=== PATIENT | male | born 1945 | race African-American/Black ===

== ENCOUNTER → 2020-03-12 13:40 | Outpatient (BNVA) | payer OTHER, SELFPAY | PROVIDERS: Visit Provider Urology | DX: Z76.89 Persons encountering health services in other specified circumstances (principal) ==

== ENCOUNTER → 2020-04-03 10:02 | Outpatient (BNVA) | payer OTHER, SELFPAY | PROVIDERS: Visit Provider Urology | DX: R39.15 Urgency of urination (principal); R35.1 Nocturia; N52.01 Erectile dysfunction due to arterial insufficiency | CPT/HCPCS: 54235; 99212 ==

== ENCOUNTER → 2020-12-16 15:18 | Outpatient (BNVA) | payer OTHER, SELFPAY | PROVIDERS: Visit Provider Urology | DX: N40.1 Benign prostatic hyperplasia with lower urinary tract symptoms (principal); N13.8 Other obstructive and reflux uropathy; R35.1 Nocturia; N52.01 Erectile dysfunction due to arterial insufficiency | CPT/HCPCS: 51798; 99212 ==

== ENCOUNTER 2021-06-08 10:23 | Outpatient (REF) | payer OTHER, SELFPAY ==
[2021-06-08 12:11] LABS: PSA,Total (Free>4and<10) 1.91 ng/mL (0.00-4.00)
== END 2021-06-08 10:24 | disposition home or self-care (01) ==
LOC: HO.LAB 10:23
PROVIDERS: PCP Internal Medicine; Visit Provider Urology
DX: Z12.5 Encounter for screening for malignant neoplasm of prostate (principal); N40.1 Benign prostatic hyperplasia with lower urinary tract symptoms; N13.8 Other obstructive and reflux uropathy
CPT/HCPCS: 36415; 84153

== ENCOUNTER → 2021-06-15 15:23 | Outpatient (BNVA) | payer OTHER, SELFPAY | PROVIDERS: PCP Internal Medicine; Visit Provider Urology | DX: N40.1 Benign prostatic hyperplasia with lower urinary tract symptoms (principal); N13.8 Other obstructive and reflux uropathy; R35.1 Nocturia; R39.15 Urgency of urination; N52.01 Erectile dysfunction due to arterial insufficiency; Z79.899 Other long term (current) drug therapy | CPT/HCPCS: 51798; 99212 ==

== ENCOUNTER → 2021-12-16 08:49 | Outpatient (BNVA) | payer OTHER, SELFPAY | PROVIDERS: PCP Internal Medicine; Visit Provider Urology | DX: N52.9 Male erectile dysfunction, unspecified (principal); R35.1 Nocturia; R33.9 Retention of urine, unspecified; R39.198 Other difficulties with micturition; R39.12 Poor urinary stream | CPT/HCPCS: 51798; 99212 ==

== ENCOUNTER 2022-06-20 10:57 | Outpatient (REF) | payer OTHER, SELFPAY ==
[2022-06-20 12:28] LABS: Prostate Specific Antigen 2.02 ng/mL (<0.05-4.0)
== END 2022-06-20 10:58 | disposition home or self-care (01) ==
LOC: HO.LAB 10:57
PROVIDERS: PCP Internal Medicine; Visit Provider Urology
DX: Z12.5 Encounter for screening for malignant neoplasm of prostate (principal); N13.8 Other obstructive and reflux uropathy; N40.1 Benign prostatic hyperplasia with lower urinary tract symptoms
CPT/HCPCS: 36415; 84153

== ENCOUNTER → 2022-06-24 11:38 | Outpatient (BNVA) | payer OTHER, SELFPAY | PROVIDERS: PCP Internal Medicine; Visit Provider Urology | DX: N40.1 Benign prostatic hyperplasia with lower urinary tract symptoms (principal); N13.8 Other obstructive and reflux uropathy; R39.15 Urgency of urination; E10.43 Type 1 diabetes mellitus with diabetic autonomic (poly)neuropathy; N52.01 Erectile dysfunction due to arterial insufficiency; N18.9 Chronic kidney disease, unspecified; Z79.82 Long term (current) use of aspirin; Z79.899 Other long term (current) drug therapy | CPT/HCPCS: 99212 ==

== ENCOUNTER 2022-12-27 08:11 | Outpatient (AMB) | payer OTHER, SELFPAY ==
--- NOTE | 2022-12-27 08:12 | A.OFFVIS_ITS ---
Intake Intake Visit Reasons: 6m/PVR Intake Note: Patient is present today via phone for a follow-up on BPH/PVR Results: 06/20/22- PSA: 2.02 Urology Med: Finasteride & Mirabegron Antibiotic Allergy: None Blood Thinner: Aspirin Tent Finisher Required: No Accompanied by: Self / Same As Patient Allergies No Known Allergies Allergy (Verified 12/27/22 08:13) Medication List - Last Reconciled 12/27/22 by Ej Nunez MD allopurinol 100 mg PO DAILY amlodipine 10 mg PO DAILY amlodipine 5 mg PO DAILY aspirin mg PO budesonide-formoterol 160-4.5 mcg/actuation (Symbicort) inhalation cetirizine 10 mg PO DAILY docusate sodium mg PO eplerenone mg PO finasteride 5 mg PO DAILY 90 days fluticasone propionate 50 mcg/actuation sprays intranasal furosemide 20 mg PO DAILY insulin aspart U-100 units subcut insulin glargine (Lantus Solostar U-100 Insulin) units subcut lidocaine 5% 1 patch topical DAILY losartan 100 mg PO DAILY metoprolol succinate ER 50 mg PO DAILY mirabegron ER 25 mg PO DAILY 90 days simvastatin mg PO HPI HPI Comments History of Present Illness Details Vasiliy is a very pleasant male. He is a patient of Dr. Christiansen. He is seen for the following urologic conditions - lower urinary tract symptoms - erectile dysfunction Telemedicine Evaluation 15 min Consultation [employer] Video attempted On combination medication for bladder emptying and storage - finasteride and Myrbetriq 25 mg Does state going every 2-3 hours during the day and night Discussed diabetic cystopathy Could add anticholinergic He would prefer not to be on additional medication Trial higher dose Myrbetriq 50 mg Prescription provided 2 month follow-up PVR office Lower Urinary Tract Symptoms: Primarily storage symptoms Doing well with current medications using finasteride and Myrbetriq Bladder stable - does have some urgency Current visit is for further evaluation of, lower urinary tract symptoms, predominate imitative symptoms. Current treatment includes medication - finasteride - prior medications include Myrbetriq Prostate Symptom Score Moderate (9-19), Bother 3. Symptoms include 11/27 incomplete emptying, intermittency, weak stream, nocturia (>2), and are progressing - wakes every 2 hours to urinate 07/28 , incomplete emptying, weak stream, nocturia (>2), and are stable. Results from testing include Cystoscopy no abnormality seen 12/27 Prior Prostate Score unknown. PSA 01/28 3.3 01/29 [place] 2.5, 04/03 1.9, 06/01 1.9, 06/02 2.0 Prostate volume 30-50gm. Associated conditions CAD No CVA No diabetes Yes elevated PSA No erectile dysfunction Yes Testing at next visit will include bladder scan, PVR - Diabetic cystopathy Erectile dysfunction:?? Decided not to go ahead with edex No longer an issue for him ?? He presents today for for continued evaluation and management of erectile dysfunction.?Procedure(s)/Diagnosis causing dysfunction include diabetes.?Current treatment includes Has been using PGE 1 pellet., trouble with supply so was prescribed injectable alprostadil ?Treatment side effects include none. ?At this time he experiences erections are partial and adequate for vaginal penetration.?Nocturnal erections do not occur.?Currently they are has a partner who is interested in treatment.?Associated problems? hypertension? Yes ? diabetes? Yes ? dyslipidemia? Yes ? depression? No ? stress? No ? decreased libido? No ? pelvic surgery? No ?Overall he is? 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 Erectile dysfunction due to arterial insufficiency Enlarged prostate Nocturia Weak urinary stream Review of Systems Const All systems reviewed & are unremarkable except as noted in HPI and below Reports no additional complaints Resp Reports no additional complaints GI Reports no additional complaints Reports as per HPI Musc Reports no additional complaints Physical Exam Telemedicine evaluation Appropriate responses Regular breathing rate and rhythm HEENT Head: Yes normal to inspection Ears: hearing grossly normal bilaterally Eyes General: appearance normal, both eyes and all related structures Neck Neck: Yes normal visual inspection Chest Chest palpation & inspection: normal inspection of the chest Resp Effort & Inspection: normal respiratory effort and able to speak in complete sentences Assessment & Plan Assessment & Plan (1) Urinary urgency: Code(s): R39.15 - Urgency of urination (2) Nocturia more than twice per night: Code(s): R35.1 - Nocturia Plan Trial high-dose Myrbetriq Medications: Changed From mirabegron ER 25 mg PO DAILY 90 days 90 tabs 1RF R39.15 - Urgency of urination To mirabegron ER 50 mg PO DAILY 30 days 30 tabs 1RF R39.15 - Urgency of urination Patient Instructions: Imaging studies, laboratory and physical exam results were discussed and reviewed in detail. No major barriers to patient understanding were identified. An opportunity to ask questions regarding the treatment plan was provided. All questions were answered. The patient expressed understanding and agreement with the above treatment plan. The patient is aware they should contact our office by phone for worsening of their current condition or the appearance of new urologic symptoms. Compliance is encouraged with any medications and followup testing that is ordered. It is a privilege to participate in the urologic care of your patient. If you have any questions or concerns regarding treatment for the above conditions, or other urologic issues, please do not hesitate to contact me. The office telephone contact is [phone]. This note is constructed using voice recognition software. While every effort has been made to ensure accuracy box truck driver errors may have been included. Yours sincerely, Dr Ej Nunez MD, [facility] - Urology Providers of Expert, Compassionate Care for the Genitourinary System Telehealth Telehealth Location of provider rendering services: practice address Location of patient: address on file Patient Identification confirmed using: Name, : Yes Telehealth method: video Patient verbally consented to treatment: Yes Patient verbally consented to billing insurance company: Yes Patient informed of any privacy concerns related to visit: Yes Coding Level of Care Code Tele Est Pt Level 4 (53925) Diagnoses Urinary urgency R39.15 Nocturia more than twice per night R35.1
== END 2022-12-27 09:16 | disposition home or self-care (01) ==
LOC: HO.HUSH 08:12
PROVIDERS: PCP Internal Medicine; Visit Provider Urology
DX: R39.15 Urgency of urination (principal); R35.1 Nocturia
CPT/HCPCS: 99214

== ENCOUNTER → 2022-12-27 08:11 | Outpatient (BNVA) | payer OTHER, SELFPAY | PROVIDERS: PCP Internal Medicine; Visit Provider Urology ==

== ENCOUNTER 2023-03-21 13:13 | Outpatient (AMB) | payer OTHER, SELFPAY ==
--- NOTE | 2023-03-21 13:22 | MHC.OFFVIS ---
Intake Intake Visit Reasons: 2m/PVR Intake Note: Patient is Present for Follow Up PVR Urology Medication: Finasteride, Myrbetriq Antibiotic Allergies: none Blood Thinners: Aspirin PVR: 38 ml Patient was previously on Myrbetriq 25mg he is now taking 50 mg patient states that there has been improvement with Myrbetriq 50mg Allergies No Known Allergies Allergy (Verified 03/21/23 13:24) HPI HPI Comments History of Present Illness Details Vasiliy is a very pleasant male. He is a patient of Dr. Christiansen. 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 Current treatment includes medication - finasteride - prior medications include Myrbetriq Prostate Symptom Score Moderate (9-19), Bother 3. Symptoms include 11/27 incomplete emptying, intermittency, weak stream, nocturia (>2), and are progressing - wakes every 2 hours to urinate 07/28 , incomplete emptying, weak stream, nocturia (>2), and are stable. Results from testing include Cystoscopy no abnormality seen 12/27 Prior Prostate Score unknown. PSA 01/28 3.3 01/29 [place] 2.5, 04/03 1.9, 06/01 1.9, 06/02 2.0 Prostate volume 30-50gm. Associated conditions CAD No CVA No diabetes Yes elevated PSA No erectile dysfunction Yes Testing at next visit will include bladder scan, PVR - Diabetic cystopathy Erectile dysfunction:?? Decided not to go ahead with edex No longer an issue for him ?? He presents today for for continued evaluation and management of erectile dysfunction.?Procedure(s)/Diagnosis causing dysfunction include diabetes.?Current treatment includes Has been using PGE 1 pellet., trouble with supply so was prescribed injectable alprostadil ?Treatment side effects include none. ?At this time he experiences erections are partial and adequate for vaginal penetration.?Nocturnal erections do not occur.?Currently they are has a partner who is interested in treatment.?Associated problems? hypertension? Yes ? diabetes? Yes ? dyslipidemia? Yes ? depression? No ? stress? No ? decreased libido? No ? pelvic surgery? No ?Overall he is? 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 Erectile dysfunction due to arterial insufficiency Enlarged prostate Nocturia Weak urinary stream Review of Systems Const Denies chills and Denies fever(s) Card Reports no additional complaints and Denies syncope Resp Denies cough GI Denies abdominal pain and Denies heartburn Reports as per HPI and Denies change in libido Neuro Denies syncope Psych Denies change in libido Endo Denies change in libido Physical Exam Const General: cooperative, healthy appearing, comfortable and no acute distress Orientation/consciousness: patient oriented x3 HEENT Face and sinus: Yes normal facial exam Mouth: moist mucous membranes Neck Neck: Yes normal visual inspection, Yes full ROM and Yes trachea midline Chest Chest palpation & inspection: normal inspection of the chest Resp Effort & Inspection: normal respiratory effort, able to speak in complete sentences and no respiratory distress GI Inspection: Yes normal to inspection Back/Spine/Pelvis Cervical Spine: normal cervical lordosis Thoracic/Lumbar Spine: thoracic and lumbar spine normal to inspection Skin General skin exam: no rashes or lesions noted Neuro General: patient oriented x3, gait normal, tone normal and moves all extremities Extrem General: Yes normal to inspection and Yes capillary refill normal Office Procedures Post Void Residual Post Residual Void Post Void Residual (PVR): [id number] Void Residual by ultrasound Assessment & Plan Assessment & Plan (1) Erectile dysfunction due to arterial insufficiency: Code(s): N52.01 - Erectile dysfunction due to arterial insufficiency (2) Urinary urgency: Code(s): R39.15 - Urgency of urination (3) Nocturia more than twice per night: Code(s): R35.1 - Nocturia Plan Six month follow-up Orders: Orders AMB Post Void Residual by ultrasound Today N13.8 - Other obstructive and reflux uropathy, N40.1 - Benign prostatic hyperplasia with lower urinary tract symptoms Medications: Changed From mirabegron ER 50 mg PO DAILY 30 days 30 tabs 1RF R39.15 - Urgency of urination To mirabegron ER 50 mg PO DAILY 90 tabs 1RF 90 days R39.15 - Urgency of urination Refilled finasteride 5 mg PO DAILY 90 tabs 1RF 90 days R39.15 - Urgency of urination Patient Instructions: Imaging studies, laboratory and physical exam results were discussed and reviewed in detail. No major barriers to patient understanding were identified. An opportunity to ask questions regarding the treatment plan was provided. All questions were answered. The patient expressed understanding and agreement with the above treatment plan. The patient is aware they should contact our office by phone for worsening of their current condition or the appearance of new urologic symptoms. Compliance is encouraged with any medications and followup testing that is ordered. It is a privilege to participate in the urologic care of your patient. If you have any questions or concerns regarding treatment for the above conditions, or other urologic issues, please do not hesitate to contact me. The office telephone contact is [phone]. This note is constructed using voice recognition software. While every effort has been made to ensure accuracy pipe fitter helper errors may have been included. Yours sincerely, Dr Ej Nunez MD, [facility] - Urology Providers of Expert, Compassionate Care for the Genitourinary System Coding Level of Care Code Est Pt Level 3 (61838) Diagnoses Erectile dysfunction due to arterial insufficiency N52.01 Urinary urgency R39.15 Nocturia more than twice per night R35.1 CPT Codes Post Residual Void - PVR CPT Code: 69175-[id number] Void Residual by ultrasound ([id number])
== END 2023-03-21 14:00 | disposition home or self-care (01) ==
PROVIDERS: PCP Internal Medicine; Referring Provider Internal Medicine; Visit Provider Urology
DX: N52.01 Erectile dysfunction due to arterial insufficiency (principal); R39.15 Urgency of urination; R35.1 Nocturia
CPT/HCPCS: 99213

== ENCOUNTER → 2023-03-21 13:13 | Outpatient (BNVA) | payer OTHER, SELFPAY | PROVIDERS: PCP Internal Medicine; Visit Provider Urology | DX: N52.01 Erectile dysfunction due to arterial insufficiency (principal); R39.15 Urgency of urination; R35.1 Nocturia | CPT/HCPCS: 51798 ==

== ENCOUNTER 2023-09-13 09:42 | Outpatient (AMB) | payer OTHER, SELFPAY ==
--- NOTE | 2023-09-13 09:43 | A.OFFVIS_ITS ---
Intake Visit Reasons: 6m follow up Intake Note: Patient is Present for Telephone Follow Up Urology Med: Myrbetriq, Finasteride Antibiotic Allergy:None Blood Thinner: Aspirin Card Lacer Required: No Allergies No Known Allergies Allergy (Verified 09/13/23 09:43) Medication List - Last Reconciled 09/13/23 by Ej Nunez MD allopurinol 100 mg PO DAILY alprostadil 40 mcg intra-cavernosal 3XW PRN 30 days amlodipine 10 mg PO DAILY amlodipine 5 mg PO DAILY aspirin mg PO budesonide-formoterol 160-4.5 mcg/actuation (Symbicort) inhalation cetirizine 10 mg PO DAILY docusate sodium mg PO eplerenone mg PO finasteride 5 mg PO DAILY 90 days fluticasone propionate 50 mcg/actuation sprays intranasal furosemide 20 mg PO DAILY insulin aspart U-100 units subcut insulin glargine (Lantus Solostar U-100 Insulin) units subcut lidocaine 5% 1 patch topical DAILY losartan 100 mg PO DAILY metoprolol succinate ER 50 mg PO DAILY mirabegron ER 50 mg PO DAILY 90 days simvastatin mg PO HPI Comments Details: Vasiliy is a very pleasant male. He is a patient of Dr. Christiansen. He is seen for the following urologic conditions - lower urinary tract symptoms - erectile dysfunction Telemedicine Evaluation 15 min Consultation [employer] Hillary Video 6 month f/u for combination bladder managment On combination medication for bladder emptying and storage - finasteride and Myrbetriq 50 mg Continuing to do very well Did ask whether MUSE still available. It appears to been withdrawn from the market. 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 Current treatment includes medication - finasteride - prior medications include Myrbetriq Prostate Symptom Score Moderate (9-19), Bother 3. Symptoms include 11/27 incomplete emptying, intermittency, weak stream, nocturia (>2), and are progressing - wakes every 2 hours to urinate 07/28 , incomplete emptying, weak stream, nocturia (>2), and are stable. Results from testing include Cystoscopy no abnormality seen 12/27 Prior Prostate Score unknown. PSA 01/28 3.3 01/29 [place] 2.5, 04/03 1.9, 06/01 1.9, 06/02 2.0 Prostate volume 30-50gm. Associated conditions CAD No CVA No diabetes Yes elevated PSA No erectile dysfunction Yes Testing at next visit will include bladder scan, PVR - Diabetic cystopathy Erectile dysfunction:?? Decided not to go ahead with edex No longer an issue for him ?? He presents today for for continued evaluation and management of erectile dysfunction.?Procedure(s)/Diagnosis causing dysfunction include diabetes.?Current treatment includes Has been using PGE 1 pellet., trouble with supply so was prescribed injectable alprostadil ?Treatment side effects include none. ?At this time he experiences erections are partial and adequate for vaginal penetration.?Nocturnal erections do not occur.?Currently they are has a partner who is interested in treatment.?Associated problems? hypertension? Yes ? diabetes? Yes ? dyslipidemia? Yes ? depression? No ? stress? No ? decreased libido? No ? pelvic surgery? No ?Overall he is? 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 Erectile dysfunction due to arterial insufficiency Enlarged prostate Nocturia Weak urinary stream Review of Systems Const All systems reviewed & are unremarkable except as noted in HPI and below Reports no additional complaints Resp Reports no additional complaints GI Reports no additional complaints Reports as per HPI Musc Reports no additional complaints Physical Exam Telemedicine evaluation Appropriate responses Regular breathing rate and rhythm HEENT Head: Yes normal to inspection Ears: hearing grossly normal bilaterally Eyes General: appearance normal, both eyes and all related structures Neck Neck: Yes normal visual inspection Chest Chest palpation & inspection: normal inspection of the chest Resp Effort & Inspection: normal respiratory effort and able to speak in complete sentences Telehealth Telehealth Location of provider rendering services: practice address Location of patient: address on file Patient Identification confirmed using: Name, : Yes Telehealth method: video Patient verbally consented to treatment: Yes Patient verbally consented to billing insurance company: Yes Patient informed of any privacy concerns related to visit: Yes Assessment & Plan Assessment & Plan (1) Urinary urgency: Code(s): R39.15 - Urgency of urination Category: Medical (2) BPH w urinary obs/LUTS: Code(s): N40.1 - Benign prostatic hyperplasia with lower urinary tract symptoms; N13.8 - Other obstructive and reflux uropathy Category: Medical (3) Erectile dysfunction due to arterial insufficiency: Code(s): N52.01 - Erectile dysfunction due to arterial insufficiency Category: Medical Plan Six-month follow-up office PSA Orders: Orders Prostate Specific Antigen 6 Months N13.8 - Other obstructive and reflux uropa thy, N40.1 - Benign prostatic hyperplasia with lower urinary tract symptoms Medications: New alprostadil 40 mcg intra-cavernosal 3XW PRN 2 ea 4RF erectile dysfunction 30 days N52.01 - Erectile dysfunction due to arterial insufficiency Refilled finasteride 5 mg PO DAILY 90 tabs 1RF 90 days R39.15 - Urgency of urination mirabegron ER 50 mg PO DAILY 90 tabs 1RF 90 days R39.15 - Urgency of urination Patient Instructions: Imaging studies, laboratory and physical exam results were discussed and reviewed in detail. No major barriers to patient understanding were identified. An opportunity to ask questions regarding the treatment plan was provided. All questions were answered. The patient expressed understanding and agreement with the above treatment plan. The patient is aware they should contact our office by phone for worsening of their current condition or the appearance of new urologic symptoms. Compliance is encouraged with any medications and followup testing that is ordered. It is a privilege to participate in the urologic care of your patient. If you have any questions or concerns regarding treatment for the above conditions, or other urologic issues, please do not hesitate to contact me. The office telephone contact is [phone]. This note is constructed using voice recognition software. While every effort has been made to ensure accuracy family dentist errors may have been included. Yours sincerely, Dr Ej Nunez MD, [facility] - Urology Providers of Expert, Compassionate Care for the Genitourinary System Coding Level of Care Code Tele Est Pt Level 4 (11921) Diagnoses Urinary urgency R39.15 BPH w urinary obs/LUTS N40.1; N13.8 Erectile dysfunction due to arterial insufficiency N52.01
== END 2023-09-13 10:34 | disposition home or self-care (01) ==
LOC: HO.HUSH 09:42
PROVIDERS: PCP Internal Medicine; Visit Provider Urology
DX: N40.1 Benign prostatic hyperplasia with lower urinary tract symptoms (principal); N13.8 Other obstructive and reflux uropathy; R39.15 Urgency of urination; E11.40 Type 2 diabetes mellitus with diabetic neuropathy, unspecified; N52.01 Erectile dysfunction due to arterial insufficiency
CPT/HCPCS: 99214

== ENCOUNTER → 2023-09-13 09:42 | Outpatient (BNVA) | payer OTHER, SELFPAY | PROVIDERS: PCP Internal Medicine; Visit Provider Urology ==

== ENCOUNTER 2024-09-16 12:05 | Outpatient (REF) | payer OTHER, SELFPAY ==
--- OUTSIDE RECORDS SUMMARY | 2024-09-16 12:54 | XMS_ITS | Encounter Summary ---
Author Organization [facility] Address [address] [address] Phone Care Team Providers Care Job Spotter Name Role Phone Bisi Christiansen MD Primary Care Provider [phone] Encounter Details Date Type Department Care Team (Late Contact Info) Description 08/29/2024 Office Communication [facility] [address] [id number] Judi Lucas ARNP [address] [address] Social History Tobacco Use Types Packs/Day Years Used Date Smoking Tobacco: Never Smokeless Tobacco: Never Alcohol Use Standard Drinks/Week Comments Never 0 (1 standard drink = 0.6 oz pur e alcohol) Sex and Gender Information Value Date Recorded Sex Assigned at Not on file Legal Sex Male 4:57 PM EST Gender Identity Not on file Sexual Orientation Not on file documented as of this encounter Plan of Treatment Upcoming Encounters Date Type Department Care Team (Late st Contact Info) Description 12/17/2024 10:15 AM EDT Office Visit [facility] [address] [id number] Maunel Lawson MD [address] [id number] documented as of this encounter Visit Diagnoses Not on filedocumented in this encounter Care Teams Job Spotter Relationship Specialty Start Date End Date Bisi Christiansen MD PCP - General Internal Medicine 06/29/22 documented as of this encounter
--- OUTSIDE RECORDS SUMMARY | 2024-09-16 12:54 | XMS_ITS | Clinical Summary ---
Author Organization [facility] Address [address] [place] [address] Care Team Providers Care Record Tabulating Clerk Name Role Phone Bisi Christiansen MD Primary Care Provider [phone] Allergies Active Allergy Reactions Criticality Noted Date Comments Seasonal 10/07/2022 Medications Medication Sig Dispensed Refills Start Date End Date Status famotidine (PEPCID) 10 MG tablet Take 1 tablet (10 mg total) by mouth 2 (two) times a day. 0 Active cetirizine (ZyrTEC) 10 MG tablet Take 1 tablet (10 mg total) by mouth daily. 0 Active empagliflozin (JARDIANCE) tablet 10 mg Take 1 tablet (10 mg total) by mouth daily. 0 Active FERROUS SULFATE PO Take by mouth. 0 Ac tive amLODIPine (NORVASC) tablet 10 mg Take 1 tablet (10 mg total) by mouth daily. 0 Active aspirin EC 81 MG tablet Take 1 tablet (81 mg total) by mouth daily. 0 Active eplerenone (INSPRA) tablet 50 mg Take 1 tablet (50 mg total) by mouth daily. 0 Active losartan (COZAAR) 100 MG tablet Take 1 tablet (100 mg total) by mouth daily. 0 Active budesonide-formotero l (Symbicort) 160-4.5 MCG/ACT inhaler Inhale 2 inhalations into the lungs 2 (two) times a day. 0 Active allopurinol (ZYLOPRIM) 100 MG tablet Take 1 tablet (100 mg total) by mouth daily. 0 Active insulin aspart (NovoLOG FLEXPEN) injection 100 units/mL Inject 100 Units under the skin 3 (three) times a day. 0 Active albuterol (ProAir HFA) 108 (90 Base) MCG/ACT inhaler Inhale 2 puffs into the lungs every 6 (six) hours as needed for wheezing. 0 Active Mirabegron ER (MYRBETRIQ) 25 MG TB24 24 hr tablet Take by mouth. 0 Act sherice insulin glargine (LANTUS) injection 100 units/mL Inject 22 Units under the skin every night at bedtime. 0 Active simvastatin (ZOCOR) 80 MG tablet Take 0.5 tablets (40 mg total) by mouth every night at bedtime. 0 Active hydrOXYzine (ATARAX) 25 MG tablet Take 1 tablet (25 mg total) by mouth. 0 Active Active Problems No known active problems Social History Tobacco Use Types Packs/Day Years Used Date Smoking Tobacco: Never Smokeless Tobacco: Never Tobacco Cessation:Counseling Given: Not Answered Alcohol Use Standard Drinks/Week Comments Not Currently 0 (1 standard drink = 0.6 oz pur e alcohol) Sex and Gender Information Value Date Recorded Sex Assigned at Not on file Gender Identity Not on file Sexual Orientation Not on file Job Start Date Occupation Industry Not on file Not on file Not on file Last Filed Vital Signs Vital Sign Reading Time Taken Comments Blood Pressure 144/69 10/26/2022 10:20 AM EDT Pulse 66 10/26/2022 10:20 AM EDT Temperature 36.5 C (97.7 F) 10/26/2022 10:20 AM EDT Respiratory Rate - - Oxygen Saturation 97% 10/26/2022 10:20 AM EDT Inhaled Oxygen Concentration - - Weight 99.8 kg (220 lb) 10/26/2022 10:20 AM EDT Height - - Body Mass Index - - Plan of Treatment Health Maintenance Due Date Last Done Comments Hepatitis C Screening 1945 Depression Screening 1958 Preventative Health Evaluation 1964 Shingrix-Zoster Vaccine (1 of 2) 1996 Fall Risk Assessment 10/04/2011 Pneumococcal Vaccine (3 of 3 - PPSV23 or PCV20) 12/30/2019 12/29/2014, 11/06/2001 RSV Adult > 60+ Yrs or (1 - 1-dose 75+ series) 2021 DTap / Tdap / Td (2 - Td or Tdap) 10/05/2022 10/05/2012 COVID-19 Vaccine ( - season) 2023 07/26/2021, 12/18/2020, 05/13/2020, Additional history exists Influenza Vaccine (#1) 2024 , 12/04/2019, 12/03/2018, Additional history exists Hepatitis B Vaccines Aged Out No long er eligible based on patient's age to complete this topic RSV Ped < 20 months Aged Out No longe r eligible based on patient's age to complete this topic Care Teams Record Tabulating Clerk Relationship Specialty Start Date End Date Bisi Christiansen MD PCP - General Internal Medicine 09/05/22
--- OUTSIDE RECORDS SUMMARY | 2024-09-16 12:54 | XMS_ITS | Clinical Summary ---
Author Organization [place] [id number] [facility] Address [address] [place] [address] Phone Care Team Providers Care Educational Psychologist Name Role Phone Bisi Christiansen MD Primary Care Provider [phone] Allergies Active Allergy Reactions Criticality Noted Date Comments Other 12/22/2023 Cholestatin, seasonal allergies Prednisone Cramps 04/25/2024 Medications finasteride (PROSCAR) 5 mg tablet Take 1 tablet (5 mg total) by mouth 1 (one) time each day. 03/21/2023 Active fluticasone-vinayak meterol (Wixela Inhub) 250-50 mcg/dose diskus inhaler Inhale 2 Puffs into the lungs 2 Times Daily. 03/05/2023 Active sildenafiL (VIAGRA) 100 mg tablet Take 1 tablet (100 mg total) by mouth 1 (one) time each day if needed. 04/14/2023 Active mirabegron (Myrbetriq) 50 mg tablet extended release 24 hr 24 hr tablet Take 1 Tablet by mouth at bedtime. 03/21/2023 Active ferrous sulfate 325 mg (65 mg elemental iron) tablet Take 1 tablet (325 mg total) by mouth 2 (two) times a week. 05/25/2023 Active polyvinyl alcohol (ARTIFICIAL TEARS) 1.4 % ophthalmic solution INSTILL 1 DROP INTO EACH EYE FOUR TIMES DAILY NEEDED FOR DRY EYE 01/30/2023 Active albuterol HFA (PROAIR HFA ; PROVENTIL HFA ; VENTOLIN HFA) 90 mcg/actuation inhaler Inhale 2 Puffs into the lungs every 4 hours as needed for Wheezing for up to 30 days. 05/25/2022 Active amLODIPine (NORVASC) 10 mg tablet Take 1 tablet (10 mg total) by mouth 1 (one) time each day. 11/06/2020 Active aspirin 81 mg EC tablet Take 1 tablet (81 mg total) by mouth 1 (one) time each day. 08/12/2020 Active eplerenone (INSPRA) 50 mg tablet Take 1 tablet (50 mg total) by mouth 1 (one) time each day. 09/22/2020 Active losartan (COZAAR) 100 mg tablet Take 1 Tab by mouth daily for 180 days. 05/06/2020 Active allopurinoL (ZYLOPRIM) 100 mg tablet Take 1 tablet (100 mg total) by mouth 1 (one) time each day. Active simvastatin (ZOCOR) 80 mg tablet Take 0.5 tablets (40 mg total) by mouth at bedtime. Active Vitamin C tablet Take 1 tablet (100 mg total) by mouth 1 (one) time each day. Active empagliflozin (JARDIANCE) 10 mg tablet Take 1 tablet (10 mg total) by mouth 1 (one) time each day. Active semaglutide (Ozempic) 0.25 mg or 0.5 mg(2 mg/1.5 mL) injection pen Inject 1 mg under the skin every 7 (seven) days. 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 Overview (06/19/2024): Seen by hematology 10/02, no further evaluation felt necessary Aortic stenosis 10/01/2021 Overview (12/22/2023): 12/31 mild 12/03 mild to mod COVID-19 virus detected 06/17/2019 Overview (12/22/2023): 06/14/2019, admitted [facility] Cannabis abuse 11/16/2018 Pulmonary nodules 11/16/2018 PVC (premature ventricular contraction) 01/20/20 18 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 Also 3.3 cm left renal cyst[facility], 6 month follow-up recommended. Allergic rhinitis 11/23/2012 Hyperlipidemia 09/21/2009 Depression 08/27/2008 Overview (12/22/2023): With some anxiety DM (diabetes mellitus), type 2 with renal complications ([facility] V24, [facility] V28) 09/05/2007 Hypertension 02/18/2005 Microalbuminuria 02/18/2005 Resolved Problems Problem Noted Date Diagnosed Date Resolved Date CKD (chronic kidney disease) stage 3, GFR 30-59 ml/min ([facility] V24, [facility] V28) 09/22/2015 06/19/2024 Encounters Date Type Department Care Team Description 09/04/2024 9:30 AM EDT Office Visit Pulmonolgy - [facility] [address] [facility] [address] [place] [id number] Abel De Oliveira MD Sarcoidosis of lung with sarcoidosis of lymph nodes ([facility] V24) (Primary Dx); JOYCE (obstructive sleep apnea) 06/19/2024 12:45 PM EDT Office Visit Adult Medicine [address] [phone] Bisi Christiansen MD Primary hypertension (Primary Dx); Type 2 diabetes mellitus with stage 3 chronic kidney disease, without long-term current use of insulin, unspecified whether stage 3a or 3b CKD ([facility] V24, [facility] V28); Other hyperlipidemia; Aortic valve stenosis, etiology of cardiac valve disease unspecified; Lambda light chain disease ([facility] V24); Stage 4 chronic kidney disease ([facility] V24[facility] V28); Cocaine abuse ([facility] V24, [facility] V28) from Last 3 Months Immunizations Name Administration Dates Next Due COVID-19 (Pfizer/Comirnaty) 12yo and older 12/14/2022 DTaP (Infanrix) 6wks to less than 7yo 10/05/2012 Influenza Quadravalent, 0.5m l (Fluad) 65yo and older 12/14/2022,01/05/2022,12/10/2020 Influenza Quadravalent, 0.5m l (Fluzone High-dose) 65yo and older 11/22/2022 Influenza Quadrivalent, 0.5m l, preservative free (Fluarix; FluLaval; Fluzone) ages 6mo and older (Afluria) 3yo and older 12/04/2019,12/03/2018 Influenza trivalent, 0.5mL ( Fluzone High-dose) 65yo and older 11/29/2023,12/14/2022,11/22/2022 Influenza trivalent, 0.5mL, preservative free (Fluarix; FluLaval; Fluzone) ages 6mo and older (Afluria) 3 years and older 12/08/2017 Influenza trivalent, with pr eservative (Fluzone; Afluria) 6mo and older 01/05/2022,12/10/2020,12/04/2019,12/03,12/08/2017,11/23/2011,12/12/2007 ,12/26/2006,12/17/2001 Influenza, Unspecified 12/14/2022,2020,12/02/2016,12/06,12/05/2014,11/27/2013,11/24/2013 ,12/12/2012,11/23/2011,11/19/2010,12/11,12/17/2008,12/12/2007, 8,12/26/2006,01/11/2006,01/12/2005, Pfizer (ages 12 & older) Biv alent, COVID-19 12/14/2022,12/30/2021 Pfizer (ages 12 & older) JULIANNE S-CoV-2 COVID-19, mRNA, LNP-S, rosaura-sucrose, preservative free 07/26/2021 Pneumococcal conjugate 13 va lent (Prevnar 13, PCV13) 2mo and older 12/29/2014 Pneumococcal polysaccharide 23 valent (Pneumovax 23) 2yo and older 01/13/2022,03/02/2012,11/09/2004,11/06,03/13/2001 Td Tetanus diptheria (Tdvax) 7yo and older 11/09/2004 Tdap Tetanus diptheria acell ular pertussis (Boostrix; Adacel) 7yo and older 04/17/2023,10/05/2012 Zoster Live 03/02/2012,03/02/2012 Zoster recombinant (Shingrix ) 19yo and older 08/05/2020,01/09/2020 Surgical History Surgery Date Site/Laterality Comments OTHER SURGICAL HISTORY approx 2001 ARTHRODESIS WRIST COMPLETE W/O BONE GRAFT; COMMENT: right OTHER SURGICAL HISTORY 1998 REPAIR TENNIS ELBOW; COMMENT: right HERNIA REPAIR inguinal, left COLONOSCOPY 04/05/05 : normal OTHER SURGICAL HISTORY 04/06/15 : normal; repeat in five years, if healthy and if he so wishes ESOPHAGOGASTRODUODENOSCOPY 01/23/17 [facility] chronic antral gastritis with H. pylori COLONOSCOPY 03/27/2015 : normal; repeat in five years, if healthy and if he so wishes Medical History Medical History Date Comments Proteinuria 02/18/2005 DX:Proteinuria Depression 08/27/2008 DX:Depression Epididymitis 02/07/2012 DX:Epididymitis DM (diabetes mellitus), type 2 with renal complications ([facility] V24, [facility] V28) 09/05/2007 DX:DM (diabetes mellitus), t ype 2 with renal complications ([facility]) Hypertension 02/18/2005 DX:Hypertension Umbilical hernia 02/17/2017 DX:Umbilical he rnia; COMMENT: bilateral Allergic rhinitis 11/23/2012 DX:Allergic rh initis CKD (chronic kidney disease) stage 3, GFR 30-59 ml/min ([facility] V24, [facility] V28) 09/22/2015 DX:CKD (chronic kidney disea se) stage 3, GFR 30-59 ml/min ([facility]) Hyperlipidemia 09/21/2009 DX:Hyperlipidemi a Osteoarthritis 12/02/2016 DX:Osteoarthriti s; COMMENT: Spine, spinal stenosis, sciatica, cervical cord comp w/ myelomalacia Positive H. pylori test 02/17/2017 DX:Posit sherice H. pylori test; COMMENT: 02/17/17 currently being treated COVID-19 virus detected 06/17/2019 DX:COVID -19 virus detected; COMMENT: 06/14/2019, admitted [facility] Multiple renal cysts 08/02/2016 DX:Multiple renal cysts; COMMENT: US 06/15/2019. Also 3.3 cm left renal cyst[facility], [facility], 6 month follow-up recommended. Aortic stenosis 10/01/2021 DX:Aortic stenos is; COMMENT: 12/31 mild Dysphagia DX:Dysphagia Sarcoidosis DX:Sarcoidosis Family History Medical History Relation Name Comments Other: cancer Father Diabetes Mother on dialysis, Ca taract Blindness Sister Relation Name Status Comments Father Mother Sister Social History Tobacco Use Types Packs/Day Years Used Date Smoking Tobacco: Never Smokeless Tobacco: Never Tobacco Cessation:Counseling Given: Not Answered Alcohol Use Standard Drinks/Week Comments No 0 (1 standard drink = 0.6 oz pur e alcohol) Sex and Gender Information Value Date Recorded Sex Assigned at Not on file Legal Sex Male 5:28 PM EST Gender Identity Not on file Sexual Orientation Not on file Obstetrics History Last Filed Vital Signs Vital Sign Reading Time Taken Comments Blood Pressure 120/56 09/04/2024 9:35 AM EDT Pulse 78 09/04/2024 9:35 AM EDT Temperature 36.6 C (97.9 F) 09/04/2024 9:35 AM EDT Respiratory Rate 20 09/04/2024 9:35 AM EDT Oxygen Saturation 97% 09/04/2024 9:35 AM EDT Inhaled Oxygen Concentration - - Weight 91.6 kg (202 lb) 09/04/2024 9:35 AM EDT Height 175.3 cm (5' 9 ) 09/04/2024 9:35 AM EDT Body Mass Index 29.83 09/04/2024 9:35 AM EDT Plan of Treatment Upcoming Encounters Date Type Department Care Team (Late st Contact Info) Description 10/22/2024 9:30 AM EDT Office Visit Adult Medicine [facility] [address] [place] [phone] Leah Shay PA [address] [place] [address] 03/10/2025 9:45 AM EST [facility] [address] [facility] [address] [place] [address] Abel De Oliveira MD [address] [facility] [address] [place] [address] Health Maintenance Due Date Last Done Comments Diabetes: Annual Foot Exam 1956 Diabetes: Annual Retina Eye Exam 1955 Hepatitis A Vaccines (1 of 2 - Risk 2-dose series) 1965 RSV Immunization Adult Patients (1 - 1-dose 75+ series) 2021 Social Influencers of Health Screening 02/19/2022 COVID-19 Vaccine (8 - Pfizer risk season) 2024 12/13/2023, 12/14/2022, 12/14/2022, Additional history exists Diabetes: Blood Sugar Control Test (HGBA1C) 10/23/2024 04/25/2024, 09/25/2023, 09/25/2023, Additional history exists Influenza Vaccine (#1) 2024 , 12/14/2022, 12/14/2022, Additional history exists Depression Screening 02/17/2025 02/18/2024 Falls Risk Assessment 02/18/2025 02/19/2024 Diabetes: Annual Urine Albumin-Creatinine Ratio (uACR) 08/16/2025 08/16/2024, 04/25/2024, 04/22/2024, Additional history exists Diabetes: Annual GFR (Glomerular Filtration Rate) 08/26/2025 08/26/2024, 04/25/2024, 07/27/2023, Additional history exists Hypertension/CHF/CAD Annual BMP Blood Test 08/26/2025 08/26/2024, 04/25/2024, 07/27/2023, Additional history exists Cholesterol Screening (Lipid Panel) 09/24/2028 09/25/2023, 09/25/2023 DTaP,Tdap,and Td Vaccines (5 - Td or Tdap) 04/17/2033 04/17/2023, 10/05/2012, 10/05/2012, Additional history exists Hepatitis C Screening Completed 01/07/2013 Zoster Vaccines Completed 08/05/2020, 12/12, 03/02/2012, Additional history exists Pneumococcal Vaccine: 50+ Years Completed 01/13/2022, 12/29/2014, 03/02/2012, Additional history exists HIB Vaccines Aged Out No longer eligi ble based on patient's age to complete this topic HPV Vaccines Aged Out No longer eligi ble based on patient's age to complete this topic Hepatitis B Vaccines Aged Out No long er eligible based on patient's age to complete this topic IPV Vaccines Aged Out No longer eligi ble based on patient's age to complete this topic MMR Vaccines Aged Out No longer eligi ble based on patient's age to complete this topic Meningococcal ACWY Vaccine Aged Out N o longer eligible based on patient's age to complete this topic Meningococcal B Vaccine Aged Out No l onger eligible based on patient's age to complete this topic RSV Immunization Patients Under 20 months Aged Out No longer eligible based on patient's age to complete this topic Varicella Vaccines Aged Out No longer eligible based on patient's age to complete this topic Procedures Procedure Name Priority Date/Time Associated Diagnosis Comments MICROALBUMIN CREATININE URINE RATIO Routine 04/25/2024 1:45 PM EST Microalbuminuria COMPREHENSIVE METABOLIC PANEL Routine 04/25/2024 1:45 PM EST Primary hypertension Mixed hyperlipidemia Type 2 diabetes mellitus with diabetic microalbuminuria, without long-term current use of insulin ([facility] V24, [facility] V28) HEMOGLOBIN A1C Routine 04/25/2024 1:45 PM EST Type 2 diabetes mellitus with diabetic microalbuminuria, without long-term current use of insulin (CMS/HCC V24, CMS/HCC V28) LIPID PANEL Routine 09/25/2023 HEPATITIS C SCREENING Routine 01/07/2013 from Last 3 Months or Most Recently Relevant to Health Maintenance Results * (ABNORMAL) Microalbumin creatinine urine ratio (04/25/2024 1:45 PM EST) Creatinine, Urine 98.0 mg/dL LAB CHEMISTRY METHOD 04/25/2024 6:00 PM EST [facility] Microalb, Ur 590.0(H) 0.0 - 29.0 mg/L LAB CHEMISTRY METHOD 04/25/2024 6:00 PM EST [facility] Microalb/Crea t Ratio 602(H) <30 mg/g creat LAB CHEMISTRY METHOD 04/25/2024 6:00 PM EST [facility] Urine Urine specimen from urethra / Unknown Non-blood Collection / Unknown 04/25/2024 1:45 PM EST 04/25/2024 1:45 PM EST us Leah VAIL LAB URINE ORDERABLES Final Re sult [facility] [address] [place] [address], * (ABNORMAL) Hemoglobin A1c (04/25/2024 1:45 PM EST) Hemoglobin A1C 6.6(H) <6.5 % LAB CHEMISTRY METHOD 04/25/2024 8:42 PM EST [facility] Mean Bld Glu Estim. 143 mg/dL LAB CHEMISTRY METHOD 04/25/2024 8:42 PM EST [facility] Blood Venous blood specimen / Unknown Venipuncture / Unknown 04/25/2024 1:45 PM EST 04/25/2024 1:45 PM EST us Leah VAIL LAB BLOOD ORDERABLES Final Re sult [facility] [address] [place] [address], * (ABNORMAL) Comprehensive metabolic panel (04/25/2024 1:45 PM EST) Sodium 137 133 - 145 mmol/L LAB CHEMISTRY METHOD 04/25/2024 5:25 PM EST [facility] Potassium 4.7 3.5 - 5.5 mmol/L LAB CHEMISTRY METHOD 04/25/2024 5:25 PM [facility] Chloride 104 96 - 110 mmol/L LAB CHEMISTRY METHOD 04/25/2024 5:25 PM [facility] CO2 27 21 - 32 mmol/L LAB CHEMISTRY METHOD 04/25/2024 5:25 PM [facility] Anion Gap 6 3 - 11 LAB CHEMISTRY METHOD 04/25/2024 5:25 PM [facility] Glucose 156(H) 70 - 100 mg/dL LAB CHEMISTRY METHOD 04/25/2024 5:25 PM [facility] BUN 32(H) 5 - 25 mg/dL LAB CHEMISTRY METHOD 04/25/2024 5:25 PM [facility] Creatinine 2.33(H) 0.70 - 1.30 mg/dL LAB CHEMISTRY METHOD 04/25/2024 5:25 PM [facility] eGFR 28(L) >=60 mL/min/1. 73m2 LAB CHEMISTRY METHOD 04/25/2024 5:25 PM [facility] Comment:Calculation based on the Chronic Kidney Disease Epidemiology Collaboration (CKD-EPI) equation refit without adjustment for race. BUN/Creatinine Ratio 13.7 LAB CHEMISTRY METHOD 04/25/2024 5:25 PM [facility] Calcium 9.1 8.5 - 10.5 mg/dL LAB CHEMISTRY METHOD 04/25/2024 5:25 PM [facility] AST (SGOT) 23 10 - 42 unit/L LAB CHEMISTRY METHOD 04/25/2024 5:25 PM [facility] ALT (SGPT) 40 10 - 60 unit/L LAB CHEMISTRY METHOD 04/25/2024 5:25 PM [facility] Alkaline Phosphatase 81 42 - 121 unit/L LAB CHEMISTRY METHOD 04/25/2024 5:25 PM [facility] Total Protein 6.8 6.0 - 8.0 g/dL LAB CHEMISTRY METHOD 04/25/2024 5:25 PM [facility] Albumin 3.3 3.2 - 5.0 g/dL LAB CHEMISTRY METHOD 04/25/2024 5:25 PM [facility] Total Bilirubin 0.5 0.0 - 1.4 mg/dL LAB CHEMISTRY METHOD 04/25/2024 5:25 PM [facility] Blood Venous blood specimen / Unknown Venipuncture / Unknown 04/25/2024 1:45 PM EST 04/25/2024 1:45 PM EST Leah VAIL LAB BLOOD ORDERABLES Final Re sult [facility] [address] [place] [address], * (ABNORMAL) Lipid panel (09/25/2023) LDL/HDL Ratio 3 0 - 4 Triglycerides 192(A) 0 - 150 mg/dL Cholesterol 145 0 - 200 mg/dL HDL 50 >=40 mg/dL LDL Cholesterol 57 0 - 100 mg/dL Blood Venous blood specimen / Unknown Historical Provider LAB BLOOD ORDERABLES Yumiko l Result * Hepatitis C Screening (01/07/2013) Pathologist [facility] Hepatitis C Screening abstracted Historical Provider HEALTH MAINTENANCE Final Result from Last 3 Months or Most Recently Relevant to Health Maintenance Insurance [employer] Care Teams Educational Psychologist Relationship Specialty Start Date End Date Bisi Christiansen MD [address] [place] [id number] PCP - General Internal Medicine 10/29/19
--- OUTSIDE RECORDS SUMMARY | 2024-09-16 12:54 | XMS_ITS | Data Portability ---
Author Organization [facility], [address] Address [address] [place] [address] Assessment No assessment recorded. Plan of Treatment Reminders Order Date Submit Date Provider Last Modified By Organization Details Last Modified Time Details Appointments None recorded. Lab None recorded. Referral None recorded. Procedures None recorded. Surgeries None recorded. Imaging None recorded. Medication Orders doxycycline hyclate 100 mg capsule 2023 024 [id number], [address] [place], [address], 14:07:00 Patient TargetsNo targets recorded. Patient Instructions Encounter Date Encounter Id Patient Instructions Last Modified By Organization Details Last Modified Time 03/31/2023 [id number] gout: care instructions [email or web address] Not available 03/31/2023 14:03:25 Acute Sinusitis: Care Instructions [email or web address] Not available 03/31/2023 14:03:02 cough: care instructions [email or web address] Not available 03/31/2023 14:03:02 Take the antibiotic as prescribed. Take an over the counter probiotic daily while taking the antibiotic. Due to your kidney disease and history of GI intolerance to prednisone your toe pain due to gout can only be treated with tylenol for now. Take per package instructions. See printed instructions. Follow up with your doctor as soon as possible. Seek Emergency Medical evaluation for any worsening symptoms, particularly for high fever, shaking chills, severe headache, rash, stiff neck, worsening pain/redness/swell ing of your toe or for coldness or discoloration of your toe. [email or web address] Not available 03/31/2023 14:09:30 Reason for Referral None Reported. Problems Name Problem SNOMED Code Status Onset Date Resolution Date Notes Provider Name and Address Organization Details Recorded Time Diabetes mellitus 50226684 Active Lizz roach, PA - [facility] 4 13:19:49 Hypertensive disorder 53242566 Active Lizz roach, PA - [facility] 4 13:20:05 Kidney disease 87867707 Active Lizz roach, PA - [facility] 4 13:20:20 Problem Notes None recorded. Medical Equipment None Reported. Medications Name Sig Start Date Stop Date Status Note LastModified by Organization Details LastModified Time doxycycline hyclate 100 mg capsule Take 1 capsule twice a day by oral route for 7 days. 024 active Not Available Not Available Not Avai lable Vitals Date Recorded Body height Body mass index (BMI) Body weight Oxygen saturation Oxygen saturation in Arterial blood by Pulse oximetry Heart rate Respiratory rate Body temperature Provider Name and Address Organization Details Last Updated DateTime 4 175.26 cm 30.3 kg/m2 09054.4 4 g 96 % 96 % 70 /min 18 /min 98.9 [degF] Lizz Davis PA - [facility] 4 13:21:53 Social History Question Answer Notes LastModified by [employer] Details LastModified Time Tobacco Smoking Status Never Smoker Lizz roach, PA - [facility] 03/31/2023 13:20:37 Have You Had A Flu Shot This Season? Yes Information not available 03/31/2023 Have You Had Direct Contact, Or Contact During Intimacy, With Monkeypox Rash, Scabs, Or Body Fluids From A Person With Monkeypox? No Information not available 03/31/2023 What Was The Date Of Your Most Recent Tobacco Screening? 03/31/2023 Information not available 03/31/2023 Have You Recently Traveled Abroad? No Information not available 03/31/2023 Sex: Unknown Functional Status Question Answer Note LastModified by [employer] Details LastModified Time Do you use any illicit or recreational drugs? No Information not available 03/31/2023 Do you or have you ever used any other forms of tobacco or nicotine? No Information not available 03/31/2023 What is your level of alcohol consumption? None Information not available 03/31/2023 Mental Status None recorded. Family History Nothing Reported. Medical History No medical history recorded. Immunizations Vaccine Type Date Status Note Provider Nam e and Address Organization Details Recorded Time Influenza, high-dose, quadrivalent, PF 3 completed Lizz Susan null, PA - [facility] 03/31/2023 13:18:27 Influenza, adjuvanted, quadrivalent, PF 1 completed Lizz Susan null, PA - [facility] 03/31/2023 13:18:27 Influenza, adjuvanted, quadrivalent, PF 3 completed Lizz Susan null, PA - [facility] 03/31/2023 13:18:27 Influenza, adjuvanted, quadrivalent, PF 2 completed Lizz Susan null, PA - [facility] 03/31/2023 13:18:27 COVID-19, mRNA, LNP-S, PF, 30 mcg/0.3 mL dose 1 completed Lizz Susan null, PA - [facility] 03/31/2023 13:18:27 COVID-19, mRNA, LNP-S, PF, 30 mcg/0.3 mL dose 1 completed Lizz Susan null, PA - [facility] 03/31/2023 13:18:27 COVID-19, mRNA, LNP-S, PF, 30 mcg/0.3 mL dose 1 completed Lizz Susan null, PA - [facility] 03/31/2023 13:18:27 COVID-19, mRNA, LNP-S, PF, 30 mcg/0.3 mL dose, rosaura-sucrose 2 completed Lizz Susan null, PA - [facility] 03/31/2023 13:18:27 COVID-19, mRNA, LNP-S, bivalent, PF, 30 mcg/0.3 mL dose 2 completed Lizz Susan null, PA - [facility] 03/31/2023 13:18:27 COVID-19, mRNA, LNP-S, PF, rosaura-sucrose, 30 mcg/0.3 mL 3 completed Lizz Susan null, PA - [facility] 03/31/2023 13:18:27 pneumococcal polysaccharide PPV23 2 completed Lizz Susan null, PA - [facility] 03/31/2023 13:18:27 pneumococcal polysaccharide PPV23 2 completed Lizz Susan null, PA - [facility] 03/31/2023 13:18:27 Tdap 3 completed Lizz Susan null, PA - [facility] 03/31/2023 13:18:27 Pneumococcal conjugate PCV 13 5 completed Lizz Susan null, PA - [facility] 03/31/2023 13:18:27 Influenza, split virus, trivalent, preservative 2 completed Lizz Susan null, PA - [facility] 03/31/2023 13:18:27 Influenza, split virus, trivalent, preservative 8 completed Lizz Susan null, PA - [facility] 03/31/2023 13:18:27 Influenza, split virus, trivalent, preservative 7 completed Lizz Susan null, PA - [facility] 03/31/2023 13:18:27 Influenza, split virus, trivalent, PF 8 completed Lizz Susan null, PA - [facility] 03/31/2023 13:18:27 Td (adult), 2 Lf tetanus toxoid, preservative free, adsorbed 5 completed Lizz Susan null, PA - [facility] 03/31/2023 13:18:27 Influenza, split virus, quadrivalent, PF 9 completed Lizz Susan null, PA - [facility] 03/31/2023 13:18:27 Influenza, split virus, quadrivalent, PF 0 completed Lizz Susan null, PA - [facility] 03/31/2023 13:18:27 Past Encounters Encounter ID Performer Location Encounter Start Date Encounter Closed Date Diagnosis/Indication Diagnosis SNOMED-CT Code Diagnosis ICD10 Code Diagnosis Note [id number] [place] [address] [facility] [address] [facility] [place] [address] 03/31/2023 12:50:18 03/31/2023 14:12:49 Acute sinusitis 71107320 J01.90 Gout 88853412 M10.9 Health Concerns Section Related Observation LastModified by Organization Detai ls LastModified Time None Recorded Concern Status LastModified by Organization Details LastModified Time None Recorded Advance Directives Directive None Recorded Payers Insurance Date Sequence Insurance Name Policy Number Policy Burton Covered Member ID Burton Member ID Guarantor Name 04/06/2023 1 [facility] - [facility] HEALTH [facility] (POS) [id number] Aditya Trivedi [id number] Aditya Alexr 03/31/2023 1 [facility] Aditya Dupontyar [id number] Aditya Alexr Notes Date Note Type Note Provider Name and Address Organization Details Recorded Time 4 text/html Sinus ComplaintsReported bypatient.Location:sinus pain;facial pain;sinus pressure; left side; right side Associated Symptoms:no fever; no difficulty breathing; no nausea or vomiting; no sore throat; no ear fullness; no nasal itching; no eye itching; no dizziness;nasal discharge from both nostrils;Post nasal drip;nasal passage blockage bilaterally;cough Onset/Timing:initially started 1weeks ago Quality:worsening Duration:constant Severity:moderate Context:not worse with seasonal allergen exposure Risk Factors:no current smoking or tobacco use Alleviating factors:nothing gives relief Aggravating factors:nothing makes it worseNotes:77 year old male with hx of DM, HTN, CKD III, gout presenting with two different complaints. First he reports sinus pain and pressure, nasal congestion, runny nose, post nasal drip and productive cough getting worse for one week. He has chronic shortness of breath which is unchanged from baseline. He also reports left great toe pain, swelling and minor redness without increased warmth for the past 5 days. He was treated for gout in that toe January 2023 with prednisone. The prednisone helped but he had GI intolerance to the prednisone ( stomach pain, nausea and vomiting). No fever, chills, generalized headache, rash, stiff neck,. ear pain, sore throat, chest pain, wheezing. GI symptoms, body aches. No numbness or weakness of the toe. No red streaking or purulent drainage. No injury to the toe. His toe pain is similar to the pain he had when he was treated for gout.ToesReported bypatient.source of patient informationInformation obtained from patient; Patient arrived at Urgent Care ambulatory Location:left; Great toe diffusely. Quality:aching; constant Severity:moderate Duration:5 days Timing:gradual; recurrent Context:atraumatic; Hx of gout. Alleviating Factors:rest; elevation Aggravating Factors:walking; Movement, palpation. Associated Symptoms:no weakness; no numbness; no tingling; no warmth; no ecchymosis; no catching/locking; no popping/clicking; no buckling; no grinding; no instability; no drainage; no chills;swelling;redness Previous Surgery:none Prior Imaging:none Previous Injections:none Previous PT:none Jennifer Collins MD [facility] [place], [address], PA - [facility] 04/06/2023 14:51:14
[2024-09-16 14:12] LABS: Prostate Specific Antigen 2.47 ng/mL (<0.05-4.0)
== END 2024-09-16 12:06 | disposition home or self-care (01) ==
LOC: HO.LAB 12:05
PROVIDERS: PCP Internal Medicine; Visit Provider Urology
DX: N40.1 Benign prostatic hyperplasia with lower urinary tract symptoms (principal); N13.8 Other obstructive and reflux uropathy; Z12.5 Encounter for screening for malignant neoplasm of prostate
CPT/HCPCS: 36415; 84153

== ENCOUNTER 2024-09-19 09:24 | Outpatient (AMB) | payer OTHER, SELFPAY ==
--- OUTSIDE RECORDS SUMMARY | 2024-09-19 09:51 | XMS_ITS | Clinical Summary ---
Author Organization [facility] Address [address] [place] [address] Care Team Providers Care Venetian Blind Mechanic Name Role Phone Bisi Christiansen MD Primary Care Provider [phone] Allergies Active Allergy Reactions Criticality Noted Date [...] age to complete this topic Care Teams Venetian Blind Mechanic Relationship Specialty Start Date End Date Bisi Christiansen MD PCP - General Internal Medicine 09/05/22
--- OUTSIDE RECORDS SUMMARY | 2024-09-19 09:51 | XMS_ITS | Clinical Summary ---
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 Overview (06/19/2024): Seen by hematology 10/02, no further evaluation felt necessary Aortic stenosis 10/01/2021 Overview (12/22/2023): 12/31 mild 12/03 mild to mod COVID-19 virus detected 06/17/2019 Overview (12/22/2023): 06/14/2019, admitted [facility] Cannabis abuse 11/16/2018 Pulmonary nodules 11/16/2018 PVC (premature ventricular contraction) 01/20/20 18 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 ([facility] V24) 11/10/2017 Cocaine abuse ([facility] V24, [facility] V28) 017 JOYCE (obstructive sleep [...] (diabetes mellitus), type 2 with renal complications ([facility] V24, [facility] V28) 09/05/2007 Hypertension 02/18/2005 Microalbuminuria 02/18/2005 Resolved Problems Problem Noted Date Diagnosed Date Resolved Date CKD (chronic kidney disease) stage 3, GFR 30-59 ml/min ([facility] V24, [facility] V28) 09/22/2015 06/19/2024 Encounters Date Type Department Care Team Description 09/18/2024 Telephone Adult Medicine [address] [phone] Bisi Christiansen MD Referral (Urology Insurance Referral) 09/04/2024 9:30 AM EDT Office Visit Pulmonolgy - [address] [place] [address] Abel De Oliveira MD Sarcoidosis of lung with sarcoidosis of lymph nodes ([facility] V24) (Primary Dx); JOYCE (obstructive sleep apnea) from Last 3 Months Immunizations Name Administration [...] and if he so wishes ESOPHAGOGASTRODUODENOSCOPY 01/23/17 [facility] chronic antral gastritis with H. pylori COLONOSCOPY 03/27/2015 : normal; repeat in five years, if healthy and if he so wishes Medical History Medical History Date Comments Proteinuria 02/18/2005 DX:Proteinuria Depression 08/27/2008 DX:Depression Epididymitis 02/07/2012 DX:Epididymitis DM (diabetes mellitus), type 2 with renal complications ([facility] V24, [facility] V28) 09/05/2007 DX:DM (diabetes mellitus), t ype 2 with renal complications ([facility]) Hypertension 02/18/2005 DX:Hypertension Umbilical hernia 02/17/2017 DX:Umbilical he rnia; COMMENT: bilateral Allergic rhinitis 11/23/2012 DX:Allergic rh initis CKD (chronic kidney disease) stage 3, GFR 30-59 ml/min ([facility] V24, [facility] V28) 09/22/2015 DX:CKD (chronic kidney disea se) stage 3, GFR 30-59 ml/min ([facility]) Hyperlipidemia 09/21/2009 DX:Hyperlipidemi a Osteoarthritis [...] 9:30 AM EDT Office Visit Adult Medicine [facility] [address] [place] [address] Leah Shay PA [address] [place] [address] 03/10/2025 9:45 AM EST [facility] [address] [facility] [address] [place] [phone] Abel De Oliveira MD [address] [facility] [address] [place] [address] Health Maintenance Due Date Last Done Comments Diabetes: Annual Foot Exam 1955 Diabetes: Annual Retina Eye Exam 1955 Hepatitis A Vaccines (1 of 2 - Risk 2-dose series) 1965 RSV Immunization Adult Patients (1 - 1-dose 75+ series) 2021 Social Influencers of Health Screening 02/19/2022 COVID-19 Vaccine (8 - Pfizer risk 2023- season) 2024 12/13/2023, 12/14/2022, 12/14/2022, Additional history [...] microalbuminuria, without long-term current use of insulin ([facility] V24, [facility] V28) HEMOGLOBIN A1C Routine 04/25/2024 1:45 PM EST Type 2 diabetes mellitus with diabetic microalbuminuria, without long-term current use of insulin ([facility] V24, [facility] V28) LIPID PANEL Routine 09/25/2023 HEPATITIS C SCREENING Routine 01/07/2013 from Last 3 Months or Most Recently Relevant to Health Maintenance Results * (ABNORMAL) Microalbumin creatinine urine ratio (04/25/2024 1:45 PM EST) Creatinine, Urine 98.0 mg/dL LAB CHEMISTRY METHOD 04/25/2024 6:00 PM EST [facility] Microalb, Ur 590.0(H) 0.0 - 29.0 mg/L LAB CHEMISTRY METHOD 04/25/2024 6:00 PM EST [facility] Microalb/Crea t Ratio 602(H) <30 mg/g creat LAB CHEMISTRY METHOD 04/25/2024 6:00 PM EST [facility] Urine Urine specimen from urethra / Unknown Non-blood Collection / Unknown 04/25/2024 1:45 PM EST 04/25/2024 1:45 PM EST us Leah VAIL LAB URINE ORDERABLES Final Re sult Performing Organization Address [facility]/ZIP Co de Phone Number [facility] [address] [place] [address], [place] [phone] * (ABNORMAL) Hemoglobin A1c (04/25/2024 1:45 PM EST) [facility] Hemoglobin A1C 6.6(H) <6.5 % LAB CHEMISTRY METHOD 04/25/2024 8:42 PM EST [facility] Mean Bld Glu Estim. 143 mg/dL LAB CHEMISTRY METHOD 04/25/2024 8:42 PM EST [facility] Blood Venous blood specimen / Unknown Venipuncture / Unknown 04/25/2024 1:45 PM EST 04/25/2024 1:45 PM EST us Leah VAIL LAB BLOOD ORDERABLES Final Re sult Performing Organization Address City/[facility]/ZIP Co de Phone Number [facility] [address] [place] [address], [place] [phone] * (ABNORMAL) Comprehensive metabolic panel (04/25/2024 1:45 PM EST) [facility] Sodium 137 133 - 145 mmol/L LAB CHEMISTRY METHOD 04/25/2024 5:25 PM [facility] Potassium 4.7 3.5 - 5.5 mmol/L LAB CHEMISTRY METHOD 04/25/2024 5:25 PM [facility] Chloride 104 96 - 110 mmol/L LAB CHEMISTRY METHOD 04/25/2024 5:25 PM [facility] CO2 27 21 - 32 mmol/L LAB CHEMISTRY METHOD 04/25/2024 5:25 PM [facility] Anion Gap 6 3 - 11 LAB CHEMISTRY METHOD 04/25/2024 5:25 PM [facility] Glucose 156(H) 70 - 100 mg/dL LAB CHEMISTRY METHOD 04/25/2024 5:25 PM [facility] BUN 32(H) 5 - 25 mg/dL LAB CHEMISTRY METHOD 04/25/2024 5:25 PM [facility] Creatinine 2.33(H) 0.70 - 1.30 mg/dL LAB CHEMISTRY METHOD 04/25/2024 5:25 PM [facility] eGFR 28(L) >=60 mL/min/1. 73m2 LAB CHEMISTRY METHOD 04/25/2024 5:25 PM [facility] Comment:Calculation based on the Chronic Kidney Disease Epidemiology Collaboration (CKD-EPI) equation refit without adjustment for race. BUN/Creatinine Ratio 13.7 LAB CHEMISTRY METHOD 04/25/2024 5:25 PM [facility] Calcium 9.1 8.5 - 10.5 mg/dL LAB CHEMISTRY METHOD 04/25/2024 5:25 PM [facility] AST (SGOT) 23 10 - 42 unit/L LAB CHEMISTRY METHOD 04/25/2024 5:25 PM [facility] ALT (SGPT) 40 10 - 60 unit/L LAB CHEMISTRY METHOD 04/25/2024 5:25 PM [facility] Alkaline Phosphatase 81 42 - 121 unit/L LAB CHEMISTRY METHOD 04/25/2024 5:25 PM EST [facility] Total Protein 6.8 6.0 - 8.0 g/dL LAB CHEMISTRY METHOD 04/25/2024 5:25 PM EST [facility] Albumin 3.3 3.2 - 5.0 g/dL LAB CHEMISTRY METHOD 04/25/2024 5:25 PM EST [facility] Total Bilirubin 0.5 0.0 - 1.4 mg/dL LAB CHEMISTRY METHOD 04/25/2024 5:25 PM EST [facility] Blood Venous blood specimen / Unknown Venipuncture / Unknown 04/25/2024 1:45 PM EST 04/25/2024 1:45 PM EST Leah VAIL LAB BLOOD ORDERABLES Final Re sult [facility] [address] [place] [address], * (ABNORMAL) Lipid panel (09/25/2023) LDL/HDL Ratio 3 0 - 4 Triglycerides 192(A) 0 - 150 mg/dL Cholesterol 145 0 - 200 mg/dL HDL 50 >=40 mg/dL LDL Cholesterol 57 0 - 100 mg/dL Blood Venous blood specimen / Unknown Historical Provider LAB BLOOD ORDERABLES Yumiko l Result * Hepatitis C Screening (01/07/2013) Pathologist [facility] Hepatitis C Screening abstracted Historical Provider HEALTH MAINTENANCE Final Result from Last 3 Months or Most Recently Relevant to Health Maintenance Insurance [facility] Care Teams Site Manager Relationship Specialty Start Date End Date Bisi Christiansen MD [address] [place] [address] PCP - General Internal Medicine 10/29/19
--- OUTSIDE RECORDS SUMMARY | 2024-09-19 09:51 | XMS_ITS | Encounter Summary ---
Author Organization [facility] Address [address] [address] Phone Care Team Providers Care Chair Lift Operator Name Role Phone Bisi Christiansen MD Primary Care Provider [phone] Encounter Details Date Type Department Care Team (Late Contact Info) Description 08/29/2024 Office Communication [facility] [address] [address] Judi Lucas ARNP [address] [address] Social History Tobacco Use Types [...] Office Visit [facility] [address] [address] Manuel Lawson MD [address] [address] documented as of this encounter Visit Diagnoses Not on filedocumented in this encounter Care Teams Chair Lift Operator Relationship Specialty Start Date End Date Bisi Christiansen MD PCP - General Internal Medicine 06/29/22 documented as of this encounter
--- NOTE | 2024-09-19 09:53 | MHC.OFFVIS ---
Intake Visit Reasons: 6m/PSA Intake Note: Patient is Present for 6 mo Follow Up PSA 09/16/24 :2.47 Urology Med: allupurinol, finasteride Antibiotic Allergy:None Blood Thinner: Aspirin [employer] Set Up Operator Required: No Accompanied by: Self / Same As Patient Allergies No Known Allergies Allergy (Verified 09/19/24 09:54) HPI Comments Details: Vasiliy is a very pleasant male. He is a patient of Dr. Christiansen. 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 Happy with current urinary performance - combination finasteride and Myrbetriq Waking 2 times at night This is down from 4 times at night Continue with Myrbetriq 50 mg Discussed erections Not responsive to alprostadil injections Discussed use of TriMix plus penile prosthetic At this point he is not interested Lower Urinary Tract Symptoms: Primarily storage symptoms but some degree of incomplete emptying Doing well with current medications using finasteride and Myrbetriq Bladder stable - does have some urgency Current visit is for further evaluation of, lower urinary tract symptoms, predominate imitative symptoms. Current treatment includes medication - finasteride - prior medications include Myrbetriq Prostate Symptom Score Moderate (9-19), Bother 3. Symptoms include 11/27 incomplete emptying, intermittency, weak stream, nocturia (>2), and are progressing - wakes every 2 hours to urinate 07/28 , incomplete emptying, weak stream, nocturia (>2), and are stable. Results from testing include Cystoscopy no abnormality seen 12/27 Prior Prostate Score unknown. PSA 01/28 3.3 01/29 [place] 2.5, 04/03 1.9, 06/01 1.9, 06/02 2.0 Prostate volume 30-50gm. Associated conditions CAD No CVA No diabetes Yes elevated PSA No erectile dysfunction Yes Testing at next visit will include bladder scan, PVR - Diabetic cystopathy Erectile dysfunction:?? Decided not to go ahead with edex No longer an issue for him ?? He presents today for for continued evaluation and management of erectile dysfunction.?Procedure(s)/Diagnosis causing dysfunction include diabetes.?Current treatment includes Has been using PGE 1 pellet., trouble with supply so was prescribed injectable alprostadil ?Treatment side effects include none. ?At this time he experiences erections are partial and adequate for vaginal penetration.?Nocturnal erections do not occur.?Currently they are has a partner who is interested in treatment.?Associated problems? hypertension? Yes ? diabetes? Yes ? dyslipidemia? Yes ? depression? No ? stress? No ? decreased libido? No ? pelvic surgery? No ?Overall he is? 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 Erectile dysfunction due to arterial insufficiency Enlarged prostate Nocturia Weak urinary stream Review of Systems Const Denies chills and Denies fever(s) Card Reports no additional complaints and Denies syncope Resp Denies cough GI Denies abdominal pain and Denies heartburn Reports as per HPI and Denies change in libido Neuro Denies syncope Psych Denies change in libido Endo Denies change in libido Physical Exam Const General: cooperative, healthy appearing, comfortable and no acute distress Orientation/consciousness: patient oriented x3 HEENT Face and sinus: Yes normal facial exam Mouth: moist mucous membranes Neck Neck: Yes normal visual inspection, Yes full ROM and Yes trachea midline Chest Chest palpation & inspection: normal inspection of the chest Resp Effort & Inspection: normal respiratory effort, able to speak in complete sentences and no respiratory distress GI Inspection: Yes normal to inspection Back/Spine/Pelvis Cervical Spine: normal cervical lordosis Thoracic/Lumbar Spine: thoracic and lumbar spine normal to inspection Skin General skin exam: no rashes or lesions noted Neuro General: patient oriented x3, gait normal, tone normal and moves all extremities Extrem General: Yes normal to inspection and Yes capillary refill normal Assessment & Plan Assessment & Plan (1) BPH w urinary obs/LUTS: Code(s): N40.1 - Benign prostatic hyperplasia with lower urinary tract symptoms; N13.8 - Other obstructive and reflux uropathy Category: Medical (2) Erectile dysfunction due to arterial insufficiency: Code(s): N52.01 - Erectile dysfunction due to arterial insufficiency Category: Medical (3) Nocturia more than twice per night: Code(s): R35.1 - Nocturia Category: Medical Plan Twelve month follow-up PSA Orders: Orders Prostate Specific Antigen 12 Months N13.8 - Other obstructive and reflux uropathy, N40.1 - Benign prostatic hyperplasia with lower urinary tract symptoms Patient Instructions: This note is constructed using voice recognition software. While every effort has been made to ensure accuracy events administrative assistant errors may have been included. Imaging studies, laboratory and physical exam results were discussed and reviewed in detail. No major barriers to patient understanding were identified. An opportunity to ask questions regarding the treatment plan was provided. All questions were answered. The patient expressed understanding and agreement with the above treatment plan. The patient is aware they should contact our office by phone for worsening of their current condition or the appearance of new urologic symptoms. Compliance is encouraged with any medications and followup testing that is ordered. It is a privilege to participate in the urologic care of your patient. If you have any questions or concerns regarding treatment for the above conditions, or other urologic issues, please do not hesitate to contact me. The office telephone contact is [phone]. Sincerely, Dr Ej Nunez MD, [facility] - Urology Compassionate Specialist Care for the Genitourinary System Coding Level of Care Code Est Pt Level 4 (79623) Complex EM visit Add On G2211 Diagnoses BPH w urinary obs/LUTS N40.1; N13.8 Erectile dysfunction due to arterial insufficiency N52.01 Nocturia more than twice per night R35.1
== END 2024-09-19 11:17 | disposition home or self-care (01) ==
LOC: HO.HUSH 09:25
PROVIDERS: PCP Internal Medicine; Visit Provider Urology
DX: N40.1 Benign prostatic hyperplasia with lower urinary tract symptoms (principal); N13.8 Other obstructive and reflux uropathy; N52.01 Erectile dysfunction due to arterial insufficiency; R35.1 Nocturia; Z13.9 Encounter for screening, unspecified
CPT/HCPCS: 99214

== ENCOUNTER → 2024-09-19 09:24 | Outpatient (BNVA) | payer OTHER, SELFPAY | PROVIDERS: PCP Internal Medicine; Visit Provider Urology | DX: N40.1 Benign prostatic hyperplasia with lower urinary tract symptoms (principal); N13.8 Other obstructive and reflux uropathy; R35.1 Nocturia; N52.01 Erectile dysfunction due to arterial insufficiency | CPT/HCPCS: 81003; 99212 ==